=== PATIENT | female | born 1995 | race Caucasian/White ===

== ENCOUNTER 2019-09-23 16:21 | Emergency (ER) | payer OTHER, SELFPAY ==
[2019-09-23 16:28] VITALS: BP 134/92; PULSE 82; RESP 20; TEMP 36.6; O2SAT 100
--- NOTE | 2019-09-23 16:38 | ED.URI ---
HPI - URI/Sore Throat General Chief Complaint: Upper Respiratory Infection Stated Complaint: sinus infection Time Seen by Provider: 09/23/19 16:38 Source: patient and RN notes reviewed History of Present Illness HPI Narrative: Patient is a 23-year-old female who presents the urgent care with complaints of clear drainage, stuffy nose, intermittent headaches and sinus pressure with bilateral clogged ears. Patient states that been ongoing for approximately 2 days and she has been taking allergy pills as well as Aleve. Patient states that she has not had any fevers or known contact with COVID. Patient denies of any cough. States that she does have seasonal allergies but believes the allergy pills do not do much for her . No other acute complaints. No acute distress noted. Patient read the plan of care. Related Data Allergies Allergy/AdvReac Type Severity Reaction Status Date / Time No Known Allergies Allergy Verified 09/23/19 16:49 Review of Systems Review of Systems: Narrative: CONSTITUTIONAL: Denies fever, chills, or sweats. EYES: Denies visual changes, redness, or discharge. ENT: Reports of rhinorrhea, sinus pressure, clogged ears, nasal congestion CARDIOVASCULAR: Denies chest pain, palpitations, or edema. RESPIRATORY: Denies cough or dyspnea. GASTROINTESTINAL: Denies abdominal pain, nausea, vomiting, or diarrhea. GENITOURINARY: Denies dysuria or hematuria. SKIN: Denies rash or itching. MUSCULOSKELETAL: Denies back pain, joint pain, or myalgia. NEUROLOGIC: Reports of intermittent headaches All other systems reviewed are negative, except as documented in HPI. PMFSH Comments At the time of my signature, I reviewed and agree with the nursing past medical, surgical, social, and family history. There is no relevant family history pertinent to the patient complaint. Exam Narrative: Exam Narrative: GENERAL: This is a well-nourished, well-developed patient, in no apparent distress. HEAD: normocephalic, atraumatic. Mild frontal sinus tenderness EYES: PERRL. Sclera clear/white. Vision is grossly intact. EARS: External ears normal, auditory canals clear and without drainage, TMs normal without perforation. Hearing grossly intact. NOSE: External nose normal with no obvious nasal discharge, nares without redness, no rhinorrhea. THROAT: Mucous membranes moist, posterior pharynx clear. Clear postnasal drainage NECK: Neck supple CARDIOVASCULAR: Regular rate and rhythm without murmurs, gallops, or rubs. RESPIRATORY: Clear to auscultation. Breath sounds equal bilaterally. No wheezes, rales, or rhonchi. SKIN: warm, intact with no suspicious lesions or rash, good texture and turgor. NEURO: awake, alert, and oriented to person, place and time. There were no obvious focal neurologic abnormalities. EXTREMITIES: No clubbing, cyanosis, or edema. Course Vital Signs Vital signs: Vital Signs Temperature 97.8 F 09/23/19 16:28 Pulse Rate 82 09/23/19 16:28 Respiratory Rate 20 09/23/19 16:28 Blood Pressure 134/92 H 09/23/19 16:28 Pulse Oximetry 100 09/23/19 16:28 Temperature 97.8 F 09/23/19 16:28 Pulse Rate 82 09/23/19 16:28 Respiratory Rate 20 09/23/19 16:28 Blood Pressure 134/92 H 09/23/19 16:28 Pulse Oximetry 100 09/23/19 16:28 Reviewed-patient is informed that they may have pre-hypertension or hypertension based on a blood pressure reading in the department. I recommend the patient call the primary care provider listed on their discharge instructions or a physician of their choice this week to arrange follow-up for further evaluation of possible pre-hypertension or hypertension. MDM - URI/Sore Throat MDM Narrative Medical decision making narrative: Advised the patient to use [id number] antihistamine in conjunction with Flonase nasal spray. Increase fluids and rest. Use humidifier at night and do not sleep with the windows open. Continue to treat the headaches with Tylenol/ibuprofen as needed. If you deve
== END 2019-09-23 16:50 | disposition home or self-care (01) ==
PROVIDERS: Emergency Provider Nurse Practitioner Family; PCP Nurse Practitioner Family
DX: J30.2 Other seasonal allergic rhinitis (principal); F41.9 Anxiety disorder, unspecified; F32.9 Major depressive disorder, single episode, unspecified
CPT/HCPCS: 99211; G0463